=== PATIENT | male | born 1970 | race Caucasian/White ===

== ENCOUNTER 2024-08-28 12:32 | Observation (INO) ==
[2024-08-28 13:36] LABS: Mean Platelet Volume 6.8 fL (7.5-11.2); Platelet Count 360 10^3/uL (150-450)
[2024-08-28 13:40] LABS: Activated Partial Thrombo Time 37.2 seconds (26.0-38.0); INR 1.26 (0.85-1.14)
[2024-08-28] MEDS ORDERED: Ondansetron 4 mg VIAL 2 MG/ML 2 ml VIAL IV PRN (15:26)
[2024-08-28] MEDS ORDERED: CARBAMAZEPINE 100 MG PO SCH (17:00)
[2024-08-28] MEDS: HYDROmorphone 1 MG/1 ML SYRINGE IV PRN (17:07)
[2024-08-28] MEDS: Midazolam 2 mg/2 ml VIAL 1 mg/ml 2 ml VIAL (2 mg) ONE (19:34)
[2024-08-28] MEDS: ceFAZolin 1 GM ADVAN 1 GM ADDV.VIAL IVPB ONE (19:34)
[2024-08-28] MEDS: Lidocaine 2% JELLY 6 ML Topical TOPICAL ONE (19:34)
[2024-08-28] MEDS: fentaNYL 250 mcg/5 ml 50 MCG/ML 5 ml VIAL (250 MCG) ONE (19:34)
[2024-08-28] MEDS: Glucagon 1 mg VIAL KIT ONE (19:34)
[2024-08-28] MEDS: Morphine 2 MG/ML SYRINGE IV PRN (19:47)
[2024-08-29] MEDS: DULoxetine DR 60 mg CAP PO SCH (08:44)
[2024-08-29 13:23] VITALS: BP 90/63
== END 2024-08-29 15:43 | disposition home or self-care (01) ==
LOC: SP 12:32 → MED 12:32
PROVIDERS: ADMIT Student in an Organized Health Care Education/Training Program; ATTEND Internal Medicine Gastroenterology